=== PATIENT | male | born 1955 | race Caucasian/White ===

== ENCOUNTER 2016-11-02 10:12 | Observation (INO) | payer OTHER ==
[~2016-11-02] VITALS: Ht 182.9 cm; Wt 155.1 kg
[~2016-11-02 10:12] MED LIST: LISI20TA; NIFE30TA82; REPA1TAB
[2016-11-02] MEDS ORDERED: GLIP10TA13 PO (10:20)
[2016-11-02] MEDS ORDERED: fentaNYL INJECTION 100 MCG/2 ML AMP IVP ONE (10:45)
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
[2016-11-02 10:48] LABS: BASOPHILS % (AUTO) 0 % (0-10); EOSINOPHILS # (AUTO) 0.3 10^3/uL (0.0-0.3); EOSINOPHILS % (AUTO) 2 % (0-10); LYMPHOCYTES # (AUTO) 2.5 X 10^3 (1.0-4.0); LYMPHOCYTES % (AUTO) 19 % (12-44); MEAN CORPUSCULAR HEMOGLOBIN 31 PG (25-34); MEAN CORPUSCULAR HGB CONC 34 G/DL (32-36); MEAN CORPUSCULAR VOLUME 91 FL (80-99); MEAN PLATELET VOLUME 9.8 FL (7.4-10.4); MONOCYTES # (AUTO) 0.8 X 10^3 (0.0-1.0); MONOCYTES % (AUTO) 6 % (0-12); NEUTROPHILS # (AUTO) 9.9 X 10^3 (1.8-7.8); NEUTROPHILS % (AUTO) 74 % (42-75); PLATELET COUNT 276 10^3/uL (130-400); RED CELL DISTRIBUTION WIDTH 13.5 % (10.0-14.5); WHITE BLOOD COUNT 13.4 10^3/uL (4.3-11.0)
[2016-11-02 11:01] LABS: ANION GAP 11 MMOL/L (5-14); BLOOD UREA NITROGEN 19 MG/DL (7-18); BUN/CREATININE RATIO 24; CALCIUM 9.9 MG/DL (8.5-10.1); CARBON DIOXIDE 21 MMOL/L (21-32); CHLORIDE 108 MMOL/L (98-107); CREATININE SERUM 0.79 MG/DL (0.60-1.30); GFR ESTIMATED > 60; GLUCOSE 218 MG/DL (70-105); SODIUM 140 MMOL/L (135-145)
[2016-11-02] MEDS ORDERED: CATHETER FLUSH 10 ML SYR IV PRN ×2 (11:15→16:00)
[2016-11-02] MEDS ORDERED: NS 100 ML (IVPB) BAG IV ONE (11:15)
[2016-11-02] MEDS ORDERED: IOHEXOL 350 MG/ML 150 ML (OMNIPAQUE 350) VIAL IV ONE (11:15)
--- NOTE | 2016-11-02 11:16 | Diagnostic Imaging Report ---
INDICATION: Injury from a fall EXAMINATION: Portable chest at 11:21h. Heart size and pulmonary vascularity are normal. Lungs are clear. There are no effusions or pneumothoraces. IMPRESSION: Negative chest. Dictated by: Dictated on workstation # [id number]
[2016-11-02] MEDS ORDERED: morphine INJ 10 MG/ML 1ML (SYR OR VIAL) IVP ONE ×3 (11:45→15:30)
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
--- NOTE | 2016-11-02 13:30 | Diagnostic Imaging Report ---
AP and lateral views of the pelvis. INDICATION: History of metal in the pelvis. FINDINGS: There are radiopaque foreign bodies projecting over the right pelvis, favored to be in the gluteal region. There is contrast seen within the urinary bladder. Contrast and possible stones also in the left renal collecting system seen. IMPRESSION: Metallic foreign bodies projecting over the right pelvis. Dictated by: Dictated on workstation # [id number]
[2016-11-02] MEDS ORDERED: NIFE-7 PO (14:52)
[2016-11-02] MEDS ORDERED: CHOL5000 PO (14:52)
[2016-11-02] MEDS ORDERED: LISI-552 PO (14:52)
[2016-11-02] MEDS ORDERED: CRAN1TAB5 PO (14:52)
[2016-11-02] MEDS ORDERED: HYDR-3812 PO (14:52)
[2016-11-02] MEDS ORDERED: OMEG-160 PO (14:52)
[2016-11-02] MEDS ORDERED: CINNAMON 1000 MG PO (14:52)
[2016-11-02 16:00] VITALS: BP 132/76
[2016-11-02] MEDS ORDERED: HYDROcodone/APAP 5 MG/325 MG (LORTAB) TAB PO PRN (16:00)
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
[2016-11-02 20:11] VITALS: BP 132/78
[2016-11-02] MEDS: oxyCODONE/APAP 10/325MG (PERCOCET 10) TABLET PO PRN (20:19)
[2016-11-02] MEDS: DOCUSATE SODIUM 100 MG (COLACE) CAP PO SCH (21:19)
[2016-11-02] MEDS: inSUlin (REGULAR) HUMAN 1 UNIT/0.01 ML (CHARGE PER UNIT) SC SCH (21:20)
[2016-11-02] MEDS: CATHETER FLUSH 10 ML SYR IV SCH (21:20)
[2016-11-03] VITALS: BP 114/57
[2016-11-03 04:00] VITALS: BP 142/82
[2016-11-03] MEDS: inSUlin (REGULAR) HUMAN 1 UNIT/0.01 ML (CHARGE PER UNIT) SC SCH ×2 (06:03→11:02)
[2016-11-03] MEDS: CATHETER FLUSH 10 ML SYR IV SCH (06:06)
[2016-11-03] MEDS: oxyCODONE/APAP 10/325MG (PERCOCET 10) TABLET PO PRN ×2 (06:06→11:02)
[2016-11-03 07:39] VITALS: BP 113/71
--- NOTE | 2016-11-03 09:16 | Progress Note (SOAP) ---
Subjective Subjective/Events-last exam Pain ok, still very sore No neuro symptoms at this point, No new pains. Objective Exam Vital Signs Date Time Temp Pulse Resp B/P (MAP) Pulse Ox O2 Delivery O2 Flow Rate FiO2 11/03/16 07:39 97.1 68 20 113/71 92 11/03/16 04:00 97.5 72 18 142/82 94 11/03/16 00:00 97.8 73 18 114/57 94 11/02/16 20:11 98.4 72 24 132/78 98 11/02/16 16:00 98.3 75 22 132/76 95 11/02/16 15:32 79 16 98 11/02/16 10:15 98.0 96 18 151/101 98 I & O 11/03/16 07:00 Intake Total 2320 ml Output Total 2700 ml Balance -380 ml Capillary Refill : Less Than 3 SecondsLess Than 3 Seconds General Appearance: No Apparent Distress Neck: Non Tender, Supple Respiratory: No Accessory Muscle Use, No Respiratory Distress Cardiovascular: Regular Rate, Rhythm, Normal Peripheral Pulses Extremity: Normal Range of Motion, Non Tender, No Calf Tenderness Neurologic/Psychiatric: Alert, Oriented x3, No Motor/Sensory Deficits Results Lab Laboratory Tests 11/02/16 10:36: White Blood Count 13.4H, Red Blood Count 5.10, Hemoglobin 15.6, Hematocrit 47, Mean Corpuscular Volume 91, Mean Corpuscular Hemoglobin 31, Mean Corpuscular Hemoglobin Concent 34, Red Cell Distribution Width 13.5, Platelet Count 276, Mean Platelet Volume 9.8, Neutrophils (%) (Auto) 74, Lymphocytes (%) (Auto) 19, Monocytes (%) (Auto) 6, Eosinophils (%) (Auto) 2, Basophils (%) (Auto) 0, Neutrophils # (Auto) 9.9H, Lymphocytes # (Auto) 2.5, Monocytes # (Auto) 0.8, Eosinophils # (Auto) 0.3, Basophils # (Auto) 0.0, Erythrocyte Sedimentation Rate 14, Sodium Level 140, Potassium Level 4.0, Chloride Level 108H, Carbon Dioxide Level 21, Anion Gap 11, Blood Urea Nitrogen 19H, Creatinine 0.79, Estimat Glomerular Filtration Rate > 60, BUN/Creatinine Ratio 24, Glucose Level 218H, Calcium Level 9.9 11/02/16 21:08: Glucometer 154H 11/03/16 06:02: Glucometer 137H Assessment/Plan Assessment/Plan Assess & Plan/Chief Complaint T7 Extension/distraction fracture DISH Syndrome Plan: Brace today and likely home Photostat Operator Helper to arrange hospital bed. Clinical Quality Measures DVT/VTE Risk/Contraindication: Risk Factor Score Per Nursin RFS Level Per Nursing on Admit: 2=Moderate CLAUDIA FORBES MD Nov 03, 2016 9:16 am
[2016-11-03] MEDS: DOCUSATE SODIUM 100 MG (COLACE) CAP PO SCH (10:08)
[2016-11-03] MEDS ORDERED: OXYC-465 PO (11:02)
[2016-11-03] MEDS ORDERED: HYDROcodone/APAP 5 MG/325 MG (LORTAB) TAB PO PRN (11:15)
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
[2016-11-03 12:41] VITALS: BP 128/78
[2016-11-03 14:47] VITALS: BP 128/78
[2016-11-03] MEDS ORDERED: glipiZIDE 5 MG (GLUCOTROL) TAB PO SCH (16:00)
[2016-11-03] MEDS ORDERED: lisINopril 20 MG (ZESTRIL) TAB PO SCH (18:00)
[2016-11-03] MEDS ORDERED: OMEGA 3 (FISH OIL) 1000 MG CAP PO SCH (18:00)
[2016-11-03] MEDS ORDERED: VITAMIN D3 5,000 UNITS (CHOLECALCIFEROL ) CAPSULE PO SCH (21:00)
[2016-11-03] MEDS ORDERED: NON-FORMULARY MEDICATION 1 EA EA (Cranberry Conc/C/Bacill Coag (Cranberry Tablet) 1 TAB) PO SCH (21:00)
[2016-11-03] MEDS ORDERED: CINNAMON 1000 MG PO SCH (21:00)
[2016-11-04] MEDS ORDERED: NIFEdipine ER 30 MG (PROCARDIA XL) TAB PO SCH (09:00)
== END 2016-11-03 11:03 | disposition home or self-care (01) ==
LOC: EDUNIT# 10:12 → ER 10:14 → UNDOADMOB 13:54 → 4TH 13:54
PROVIDERS: ADMIT Orthopaedic Surgery Orthopaedic Surgery of the Spine; ATTEND Orthopaedic Surgery Orthopaedic Surgery of the Spine
DX: S22.068A Other fracture of T7-T8 thoracic vertebra, initial encounter for closed fracture (principal); S20.411A Abrasion of right back wall of thorax, initial encounter; S20.412A Abrasion of left back wall of thorax, initial encounter; M47.812 Spondylosis without myelopathy or radiculopathy, cervical region; I10 Essential (primary) hypertension; E11.9 Type 2 diabetes mellitus without complications; E66.01 Morbid (severe) obesity due to excess calories; E78.00 Pure hypercholesterolemia, unspecified; Z79.84 Long term (current) use of oral hypoglycemic drugs; Z79.899 Other long term (current) drug therapy; W31.9XXA Contact with unspecified machinery, initial encounter; Y92.59 Other trade areas as the place of occurrence of the external cause; Y99.8 Other external cause status
CPT/HCPCS: 36415; 70450; 71010; 71275; 72125; 72128; 72170; 80048; 82962; 85025; 85652; 86812; 99211; G0378

== ENCOUNTER 2021-08-02 09:05 | Outpatient (RCR) | payer MEDICARE, OTHER ==
[~2021-08-02 09:05] MED LIST changes: +ACHD5005 PO; +CHOL5000 PO; +CINNAMON 1000 MG PO; +CRAN1TAB5 PO; +GLIP10TA13 PO; +LISI20TA26 PO; +NIFE30TA89 PO; +OMEG-160 PO; +OXYC-556 PO
== END 2021-09-01 | disposition home or self-care (01) ==
LOC: ONC 09:05
PROVIDERS: ATTEND Internal Medicine Hematology & Oncology
DX: C18.9 Malignant neoplasm of colon, unspecified (principal)
CPT/HCPCS: 99214